=== PATIENT | female | born 1985 | race Hispanic/Latino ===

== ENCOUNTER 2019-05-23 18:30 | Emergency (ER) | payer MEDICAID ==
[~2019-05-23 18:30] MED LIST: FERR1TAB22 PO; PREN-196 PO
[2019-05-23 19:38] LABS: APPEARANCE,URINE Clear (CLEAR); BILIRUBIN,URINE Negative (NEGATIVE); COLOR,URINE Yellow (YELLOW); GLUCOSE, URINE (UA) Negative (NEGATIVE); KETONES,URINE Negative (NEGATIVE); LEUKOCYTE ESTERASE ,URINE Negative (NEGATIVE); NITRATE,URINE Negative (NEGATIVE); OCCULT BLOOD,URINE Negative (NEGATIVE); PH,URINE 5.5 (5.0-8.0); PROTEIN,URINE Negative (NEGATIVE); UROBILINOGEN,URINE 0.2 mg/dL (0.2-1.0)
[2019-05-23 19:41] LABS: HCG,QUAL RESULT POSITIVE (NEGATIVE)
[2019-05-23 19:57] LABS: BASOPHILS % (AUTO) 0.4 % (0.0-5.0); EOSINOPHILS % (AUTO) 1.9 % (0.0-8.0); HEMATOCRIT 34.4 % (36-48); LYMPHOCYTES % (AUTO) 23.8 % (21.0-51.0); MEAN CORPUSCULAR HEMOGLOBIN 28.7 pg (27.0-33.0); MEAN CORPUSCULAR VOLUME 84.3 fL (79-99); MONOCYTES % (AUTO) 5.7 % (3.0-13.0); NEUTROPHILS % (AUTO) 68.2 % (40.0-77.0); PLATELET COUNT (AUTO) 318 K/uL (130-400); RED BLOOD CELL COUNT(AUTO) 4.08 MIL/uL (4.00-5.50); RED CELL DISTRIBUTION WIDTH 14.6 % (11.0-15.5); WHITE BLOOD COUNT (AUTO) 14.8 K/uL (4.8-10.8)
[2019-05-23] MEDS ORDERED: FAMOTIDINE 20MG TAB 20 MG TAB ONE (21:47)
== END 2019-05-23 21:54 | disposition home or self-care (01) ==
LOC: EDH 18:30
DX: O20.0 Threatened abortion (principal); Z3A.08 8 weeks gestation of pregnancy
CPT/HCPCS: 36415; 76817; 81003; 81025; 84702; 85025; 86850; 86900; 86901

== ENCOUNTER 2021-02-20 19:34 | Emergency (ER) | payer MEDICAID ==
[~2021-02-20] VITALS: Ht 154.9 cm; Wt 85.3 kg
[2021-02-20 20:47] VITALS: BP 145/72
[2021-02-20 20:58] LABS: APPEARANCE,URINE Clear (CLEAR); BILIRUBIN,URINE Negative (NEGATIVE); COLOR,URINE Yellow (YELLOW); GLUCOSE, URINE (UA) Negative (NEGATIVE); KETONES,URINE Negative (NEGATIVE); LEUKOCYTE ESTERASE ,URINE Negative (NEGATIVE); NITRATE,URINE Negative (NEGATIVE); OCCULT BLOOD,URINE Negative (NEGATIVE); PROTEIN,URINE Negative (NEGATIVE); UROBILINOGEN,URINE 0.2 mg/dL (0.2-1.0)
[2021-02-20 21:00] LABS: HCG,QUAL RESULT NEGATIVE (NEGATIVE)
[2021-02-20] MEDS ORDERED: HYDROCODONE/ACETAMINOPHEN 5/325 MG TAB PO SCH (21:30)
[2021-02-20] MEDS ORDERED: KETOROLAC 30MG VIAL (30MG/ML) IM SCH (21:30)
[2021-02-20 21:48] VITALS: BP 135/70
[2021-02-20] MEDS ORDERED: CYCL5TAB PO (23:16)
[2021-02-20] MEDS ORDERED: TRAM50TA4 PO (23:16)
[2021-02-20] MEDS ORDERED: IBUP-2070 PO (23:16)
[2021-02-21 00:10] VITALS: BP 127/65
== END 2021-02-21 00:13 | disposition home or self-care (01) ==
LOC: EDH 19:34
DX: M54.5 Low back pain (principal); Z79.899 Other long term (current) drug therapy
CPT/HCPCS: 72100; 81003; 81025; 87088; 96372; 99284; J1885

== ENCOUNTER 2022-06-18 10:36 | Emergency (ER) | payer MEDICAID ==
[~2022-06-18] VITALS: Ht 152.4 cm; Wt 89.4 kg
[~2022-06-18 10:36] MED LIST changes: +CYCL5TAB PO; +IBUP-2070 PO; +TRAM50TA4 PO
[2022-06-18 11:12] LABS: BASOPHILS % (AUTO) 0.2 % (0.0-5.0); EOSINOPHILS % (AUTO) 1.7 % (0.0-8.0); HEMATOCRIT 31.5 % (36-48); LYMPHOCYTES % (AUTO) 37.2 % (21.0-51.0); MEAN CORPUSCULAR HEMOGLOBIN 23.1 pg (27.0-33.0); MEAN CORPUSCULAR HGB CONC 31.4 g/dL (32.0-36.0); MEAN CORPUSCULAR VOLUME 73.4 fL (79-99); MONOCYTES % (AUTO) 8.3 % (3.0-13.0); NEUTROPHILS % (AUTO) 52.4 % (40.0-77.0); PLATELET COUNT (AUTO) 394 K/uL (130-400); RED BLOOD CELL COUNT(AUTO) 4.29 MIL/uL (4.00-5.50); RED CELL DISTRIBUTION WIDTH 16.9 % (11.0-15.5); WHITE BLOOD COUNT (AUTO) 8.9 K/uL (4.8-10.8)
[2022-06-18 11:17] LABS: CREATININE 0.7 mg/dL (0.5-1.5); POTASSIUM 3.9 mmol/L (3.5-5.1)
[2022-06-18 11:22] LABS: ALBUMIN 3.4 g/dL (3.5-5.0); TOTAL PROTEIN, SERUM 7.6 g/dL (6.0-8.3)
[2022-06-18 13:09] LABS: CRP QUANTITATIVE 13.3 mg/L (0.00-9.0)
[2022-06-18] MEDS ORDERED: ACET-2079 PO (13:18)
[2022-06-18] MEDS ORDERED: CLIN-141 PO (13:18)
[2022-06-18] MEDS ORDERED: ACETAMINOPHEN WITH CODEINE 1 TAB TAB PO ONE (13:30)
[2022-06-18] MEDS ORDERED: CLINDAMYCIN 150 MG CAP PO ONE (13:30)
[2022-06-18 13:32] VITALS: BP 132/72
== END 2022-06-18 13:39 | disposition home or self-care (01) ==
LOC: EDH 10:36
DX: K13.79 Other lesions of oral mucosa (principal); K02.9 Dental caries, unspecified; K05.10 Chronic gingivitis, plaque induced; Z79.899 Other long term (current) drug therapy; Z98.890 Other specified postprocedural states
CPT/HCPCS: 36415; 80053; 81025; 82550; 85025; 86140